=== PATIENT | female | born 1970 | race American Indian/Alaskan Native ===

== ENCOUNTER 2019-09-01 20:39 | Emergency (ER) | payer MEDICARE ==
[2019-09-01] MEDS ORDERED: levETIRAcetam 1000 MG/NS 0.75% 1,000 MG/100 ML BAG IV ONE (21:03)
[2019-09-01] MEDS ORDERED: FAMOTIDINE 20 MG TAB PO ONE (21:03)
[2019-09-01] MEDS ORDERED: SODIUM CHLORIDE 0.9% 500 ML 500 ML IV ONE (21:03)
[2019-09-01] MEDS ORDERED: SUCRALFATE 1 GM/10 ML ORAL LIQD PO ONE (21:03)
--- NOTE | 2019-09-01 21:05 | Emergency Department Report ---
ED General Adult HPI - General Chief complaint: Medical Clearance Stated complaint: CHEST PAIN PUI?: No Time Seen by Provider: 09/01/19 20:50 Source: patient, EMS (Verbal report received from emergency medical services. EMS documentation not available at time of chart dictation ), RN notes reviewed, old records reviewed Mode of arrival: Stretcher Limitations: Other (Patient does not recall what happened) - History of Present Illness Initial comments: During the entire history and physical examination, I am lei maker and escorted by nurse Nivia Mcbride The patient is a 49-year-old female. She is not known to myself previously. Her primary care doctor is Dr. Castro. She has a history of seizures. She believes that she takes Keppra 1000 mg twice daily. Her last seizure was 3 weeks ago. She believes that she takes other prescription medications, but does not know what she takes. She is brought to the hospital by emergency medical services. As per verbal report from EMS, the patient is brought here with a com plaint of chest pain since 12:00 PM. However, the patient cannot tell me initially why she is here. She states that a friend or local delivery driver contacted emergency medical services. She does not know the context of the 911 phone call. EMS verbally surmised that the patient may have had a seizure. The patient herself does not recall if she indeed had a seizure. She does admit to central nonradiating, nonexertional chest pressure, intermittent since 12:00 PM, which does not radiate to the back, arms or neck. She denies vomiting, diaphoresis, and exertional shortness of breath. She denies , fever, cough, coronavirus symptoms, and she denies DVT and pulmonary embolism risk factors. She has bilateral thigh myalgias. She has chronic lower abdominal pain, which she states has been present for 50 years. She is passing gas, denies irritative and obstructive urinary symptoms, and believes that she is constipated. She also endorses a history of fibroids. -: This afternoon Location: chest Radiation: non-radiation Consistency: intermittent Improves with: none Worsens with: none - Related Data Previous Rx's Medication Instructions Recorded Last Taken Type Meclizine [Antivert] 25 mg PO TID PRN #30 tablet 02/21/18 Unknown Rx Aspirin [Aspirin BABY CHEW TAB] 81 mg PO QDAY #30 tab.chew 09/01/19 Unknown Rx Multivitamin with Folic Acid [[facility] 400 mcg PO QDAY #30 tablet 09/01/19 Unknown Rx One Daily Essential Tablet] levETIRAcetam [Keppra TAB] 1,000 mg PO BID #60 tab 09/01/19 Unknown Rx Allergies Allergy/AdvReac Type Severity Reaction Status Date / Time No Known Allergies Allergy Unverified 02/21/18 13:28 ED Review of Systems ROS: Stated complaint: CHEST PAIN Other details as noted in HPI Constitutional: denies: fever Eyes: denies: eye discharge ENT: denies: congestion Respiratory: denies: shortness of breath Cardiovascular: chest pain, palpitations Gastrointestinal: abdominal pain, constipation Genitourinary: denies: dysuria Musculoskeletal: arthralgia, myalgia Skin: denies: lesions Neurological: confusion Psychiatric: denies: homicidal thoughts, suicidal thoughts Hematological/Lymphatic: as per HPI ED Past Medical Hx - Past Medical History Hx Hypertension: Yes Hx Seizures: Yes - Social History Smoking Status: Never Smoker Substance Use Type: None - Medications Home Medications: Home Medications Medication Instructions Recorded Confirmed Last Taken Type Meclizine [Antivert] 25 mg PO TID PRN #30 tablet 02/21/18 Unknown Rx Aspirin [Aspirin BABY CHEW TAB] 81 mg PO QDAY #30 tab.chew 09/01/19 Unknown Rx Multivitamin with Folic Acid [[facility] 400 mcg PO QDAY #30 tablet 09/01/19 Unknown Rx One Daily Essential Tablet] levETIRAcetam [Keppra TAB] 1,000 mg PO BID #60 tab 09/01/19 Unknown Rx ED Physical Exam - General Limitations: Other (Patient is somewhat confused and a poor historian) General appearance: alert, in no apparent distress - Head Head exam: Present: atraumatic, normocephalic - Eye Eye exam: Present: normal appearance, EOMI, other (Visual acuity intact to finger counting, color perception, reading at a close distance). Absent: nystagmus - ENT ENT exam: Present: normal exam, normal orophraynx, mucous membranes moist, normal external ear exam - Neck Neck exam: Present: normal inspection, full ROM. Absent: tenderness, meningismus - Respiratory Respiratory exam: Present: normal lung sounds bilaterally. Absent: respiratory distress - Cardiovascular Cardiovascular Exam: Present: normal rhythm, tachycardia, normal heart sounds. Absent: systolic murmur, diastolic murmur, rubs, gallop - GI/Abdominal GI/Abdominal exam: Present: soft, normal bowel sounds. Absent: distended, tenderness, guarding, rebound, rigid, pulsatile mass - Extremities Exam Extremities exam: Present: normal inspection, full ROM, other (2+ pulses noted in the bilateral upper and lower extremities. There is no palpable cord. negative Homans sign. Muscular compartments are soft. The pelvis is stable.). Absent: pedal edema, calf tenderness - Back Exam Back exam: Present: normal inspection, full ROM. Absent: tenderness, CVA tenderness (R), CVA tenderness (L), paraspinal tenderness, vertebral tenderness - Neurological Exam Neurological exam: Present: alert (Patient is alert to name, location and year. She does not know the name of the graduate assistant athletic trainer), other (No facial droop. Tongue midline. Extraocular movements intact bilaterally. Facial sensation intact to light touch in V1, V2, V3 distribution bilaterally. 5 and a 5 strength in 4 extremities. Sensation intact to light touch in 4 extremities.) - Psychiatric Psychiatric exam: Present: anxious - Skin Skin exam: Present: warm, dry, intact, normal color. Absent: rash ED Course Vital Signs 09/01/19 09/01/19 09/01/19 21:00 21:16 22:15 Temperature 98.1 F Pulse Rate 108 H 112 H 100 H Respiratory 16 24 21 Rate Blood Pressure 132/90 138/92 119/78 Blood Pressure 132/90 [Left] O2 Sat by Pulse 96 94 100 Oximetry 09/01/19 09/01/19 09/02/19 22:45 23:00 00:14 Temperature Pulse Rate 103 H 109 H 101 H Respiratory 25 H 23 24 Rate Blood Pressure 117/78 117/78 117/78 Blood Pressure [Left] O2 Sat by Pulse 100 97 Oximetry 09/02/19 09/02/19 09/02/19 00:30 00:45 01:00 Temperature Pulse Rate 96 H 94 H 94 H Respiratory 22 13 20 Rate Blood Pressure 127/89 119/84 125/87 Blood Pressure [Left] O2 Sat by Pulse 99 98 96 Oximetry 09/02/19 09/02/19 01:15 01:30 Temperature Pulse Rate 94 H 91 H Respiratory 24 22 Rate Blood Pressure 135/97 131/91 Blood Pressure [Left] O2 Sat by Pulse 98 95 Oximetry - Reevaluation(s) Reevaluation #1: 09/01/19 21:17 Differential diagnosis, including but not limited to: Seizure, postictal state, intoxication, electrolyte derangement, thyroid derangement, GERD, gastritis, hiatal hernia, acute coronary syndrome, pneumonia, pulmonary embolism, constipation, fibroids Assessment and plan: 49-year-old female who was brought to the hospital by emergency medical services, uncertain in what context EMS was contacted, patient somewhat confused, thinks that she might of had a seizure but is not sure, and is describing nonspecific chest pressure and discomfort. She also has abdominal pain which she states has been present for decades. The patient is afebrile but tachycardic, and has intermittent episodes of hypoxia, desaturating to 93, 94% on room air. This corrects without significant intervention. There is no abdominal tenderness, rebound or guarding. I have requested the name and phone number of the individual who contacted EMS to obtain collateral information. Screening laboratory studies ordered, EKG, CT scan of the brain ordered, x-ray the chest ordered. Patient will be observed at this time. Appropriate screening laboratory studies will b be sent. We will reassess after initial data points. Assuming normal EKG, normal cardiac enzymes, we would consider the patient low risk for major adverse cardiac event as per heart score. Reevaluation #2: 09/01/19 21:56 Patient is walking with a steady gait. She is found to have evidence of ethanol intoxication. Hypokalemia will be corrected. Troponin negative x1. X-ray of the chest negative Reevaluation #3: 09/01/19 21:59 Patient provided verbal consent for her medical care to be discussed with her daughter. Her daughter indicates that EMS was contacted because the patient was "not acting right." No additional history was offered. There is no history of trauma, seizure or loss of consciousness as per the daughter. Daughter updated on patient's care, and presumptive diagnosis at this time. Reevaluation #4: 09/01/19 23:27 Tachycardia resolved. EKG #2 unchanged from prior. No convulsive events. Resting comfortably and in no acute distress. Repeat troponin pending at this time Reevaluation #5: 09/02/19 01:33 Troponin negative x2. Patient observed in this department for hours without clinical decompensation. Please note that the patient had a significant delay in final disposition secondary to the laboratory taking a prolonged time to receive and result her second troponin. Her tachycardia has resolved. She continues to walk with a steady gait. Her family is going to come by and pick her up ED Medical Decision Making - Lab Data Result diagrams: 09/01/19 21:09 09/01/19 21:09 Vital Signs 09/01/19 21:00 Temperature 98.1 F Pulse Rate 108 H Respiratory 16 Rate Blood Pressure 132/90 Blood Pressure 132/90 [Left] O2 Sat by Pulse 96 Oximetry Lab Results 09/01/19 09/01/19 09/01/19 Range/Units 21:09 21:09 21:09 WBC 4.5 (4.5-11.0) K/mm3 RBC 3.72 (3.65-5.03) M/mm3 Hgb 11.7 (10.1-14.3) gm/dl Hct 35.9 (30.3-42.9) % MCV 97 (79-97) fl MCH 32 (28-32) pg MCHC 33 (30-34) % RDW 16.5 H (13.2-15.2) % Plt Count 243 (140-440) K/mm3 PT 12.6 (12.2-14.9) Sec. INR 0.93 (0.87-1.13) Sodium 145 (137-145) mmol/L Potassium 3.2 L (3.6-5.0) mmol/L Chloride 104.2 (98-107) mmol/L Carbon Dioxide 22 (22-30) mmol/L Anion Gap 22 mmol/L BUN 7 (7-17) mg/dL Creatinine 0.6 L (0.7-1.2) mg/dL Estimated GFR > 60 ml/min BUN/Creatinine Ratio 12 % Glucose 95 (65-100) mg/dL Calcium 8.5 (8.4-10.2) mg/dL Magnesium 2.00 (1.7-2.3) mg/dL Total Bilirubin < 0.20 (0.1-1.2) mg/dL AST 35 (5-40) units/L ALT 11 (7-56) units/L Alkaline Phosphatase 59 (35-129) units/L Total Creatine Kinase 113 (30-135) units/L Troponin T < 0.010 (0.00-0.029) ng/mL Total Protein 7.7 (6.3-8.2) g/dL Albumin 4.6 (3.9-5) g/dL Albumin/Globulin Ratio 1.5 % HCG, Quant (0-4) mIU/mL Salicylates (2.8-20.0) mg/dL Urine Opiates Screen Urine Methadone Screen Acetaminophen (10.0-30.0) ug/mL Ur Barbiturates Screen Ur Phencyclidine Scrn Ur Amphetamines Screen U Benzodiazepines Scrn Urine Cocaine Screen U Marijuana (THC) Screen Plasma/Serum Alcohol (0-0.07) % 09/01/19 09/01/19 09/01/19 Range/Units 21:09 21:09 21:09 WBC (4.5-11.0) K/mm3 RBC (3.65-5.03) M/mm3 Hgb (10.1-14.3) gm/dl Hct (30.3-42.9) % MCV (79-97) fl MCH (28-32) pg MCHC (30-34) % RDW (13.2-15.2) % Plt Count (140-440) K/mm3 PT (12.2-14.9) Sec. INR (0.87-1.13) Sodium (137-145) mmol/L Potassium (3.6-5.0) mmol/L Chloride (98-107) mmol/L Carbon Dioxide (22-30) mmol/L Anion Gap mmol/L BUN (7-17) mg/dL Creatinine (0.7-1.2) mg/dL Estimated GFR ml/min BUN/Creatinine Ratio % Glucose (65-100) mg/dL Calcium (8.4-10.2) mg/dL Magnesium (1.7-2.3) mg/dL Total Bilirubin (0.1-1.2) mg/dL AST (5-40) units/L ALT (7-56) units/L Alkaline Phosphatase (35-129) units/L Total Creatine Kinase (30-135) units/L Troponin T (0.00-0.029) ng/mL Total Protein (6.3-8.2) g/dL Albumin (3.9-5) g/dL Albumin/Globulin Ratio % HCG, Quant < 2 (0-4) mIU/mL Salicylates < 0.3 L (2.8-20.0) mg/dL Urine Opiates Screen Urine Methadone Screen Acetaminophen < 5.0 L (10.0-30.0) ug/mL Ur Barbiturates Screen Ur Phencyclidine Scrn Ur Amphetamines Screen U Benzodiazepines Scrn Urine Cocaine Screen U Marijuana (THC) Screen Plasma/Serum Alcohol (0-0.07) % 09/01/19 09/01/19 Range/Units 21:09 Unknown WBC (4.5-11.0) K/mm3 RBC (3.65-5.03) M/mm3 Hgb (10.1-14.3) gm/dl Hct (30.3-42.9) % MCV (79-97) fl MCH (28-32) pg MCHC (30-34) % RDW (13.2-15.2) % Plt Count (140-440) K/mm3 PT (12.2-14.9) Sec. INR (0.87-1.13) Sodium (137-145) mmol/L Potassium (3.6-5.0) mmol/L Chloride (98-107) mmol/L Carbon Dioxide (22-30) mmol/L Anion Gap mmol/L BUN (7-17) mg/dL Creatinine (0.7-1.2) mg/dL Estimated GFR ml/min BUN/Creatinine Ratio % Glucose (65-100) mg/dL Calcium (8.4-10.2) mg/dL Magnesium (1.7-2.3) mg/dL Total Bilirubin (0.1-1.2) mg/dL AST (5-40) units/L ALT (7-56) units/L Alkaline Phosphatase (35-129) units/L Total Creatine Kinase (30-135) units/L Troponin T (0.00-0.029) ng/mL Total Protein (6.3-8.2) g/dL Albumin (3.9-5) g/dL Albumin/Globulin Ratio % HCG, Quant (0-4) mIU/mL Salicylates (2.8-20.0) mg/dL Urine Opiates Screen Presumptive negative Urine Methadone Screen Presumptive negative Acetaminophen (10.0-30.0) ug/mL Ur Barbiturates Screen Presumptive negative Ur Phencyclidine Scrn Presumptive negative Ur Amphetamines Screen Presumptive negative U Benzodiazepines Scrn Presumptive negative Urine Cocaine Screen Presumptive negative U Marijuana (THC) Screen Presumptive negative Plasma/Serum Alcohol 0.38 H (0-0.07) % - EKG Data -: EKG Interpreted by Me EKG shows normal: sinus rhythm Rate: tachycardia - EKG Data Interpretation: no acute changes, unchanged when compared t 09/01/19 21:55 Sinus, tachycardia, 100 bpm, normal axis, QTC 483 ms, Q waves noted in the inferior leads, left ventricular hypertrophy. Abnormal EKG. Not a STEMI. Unchanged from prior EKG from February 2018 Critical care attestation.: If time is entered above; I have spent that time in minutes in the direct care of this critically ill patient, excluding procedure time. ED Disposition Clinical Impression: History of chest pain, History of seizure Alcohol intoxication Qualifiers: Complication of substance-induced condition: uncomplicated Qualified Code(s): F10.920 - Alcohol use, unspecified with intoxication, uncomplicated Disposition: DC- TO HOME OR SELFCARE Is pt being admited?: No Does the pt Need Aspirin: No Condition: Stable Additional Instructions: Please continue current outpatient medications. Recommend that patient minimize or discontinue alcohol consumption. Do not drive or operate motor vehicles for the next 6 months, or until cleared to do so by her primary care doctor or neurologist. Recommend that patient take baby aspirin on a daily basis, in addition to a multivitamin with folic acid. Please follow-up with your primary care doctor or neurologist within the next 7 to 10 days. Patient was found to have nonemergent incidental findings today in the emergency room, which need to be followed up by a primary care doctor or neurologist. Please have your primary care doctor or neurologist contact the medical records department to obtain copies of your laboratory studies, and radiology studies, to follow-up on nonemergent incidental findings. Please return to the emergency room right away with new pain, worsening pain, migration of pain, projectile vomiting, change in mental status, confusion, inability to tolerate liquid feeds. Also recommend follow-up with an outpatient laser operator within the next 3 to 5 days for complaint of chest pain. For the patient's convenience, local primary care, cardiology, and neurology specialists have been listed for her convenience. Prescriptions: Aspirin [Aspirin BABY CHEW TAB] 81 mg PO QDAY #30 tab.chew Multivitamin with Folic Acid [[facility] One Daily Essential Tablet] 400 mcg PO QDAY #30 tablet levETIRAcetam [Keppra TAB] 1,000 mg PO BID #60 tab Referrals: MYLES GARBER MD [Staff Physician] - 3-5 Days PAULETTE LOYA MD [Referring] - 3-5 Days [facility] [Provider Group] - 3-5 Days
[2019-09-01 21:32] LABS: Hematocrit 35.9 % (30.3-42.9); Hemoglobin 11.7 gm/dl (10.1-14.3); Mean Corpuscular HGB Conc 33 % (30-34); Mean Corpuscular Volume 97 fl (79-97); Platelet Count 243 K/mm3 (140-440); Red Blood Count 3.72 M/mm3 (3.65-5.03); Red Cell Distribution Width 16.5 % (13.2-15.2)
--- NOTE | 2019-09-01 21:37 | XRay Report ---
CHEST 1 VIEW INDICATION / CLINICAL INFORMATION: MAIN: cp; Pt came in via [facility] due to complain of chest pain. COMPARISON: None available. FINDINGS: SUPPORT DEVICES: None. HEART / MEDIASTINUM: No significant abnormality. LUNGS / PLEURA: No significant pulmonary or pleural abnormality. No pneumothorax. ADDITIONAL FINDINGS: No significant additional findings. IMPRESSION: 1. No acute findings. Signer Name: Delvis Zhang MD Signed: 09/01/2019 9:33 PM Workstation Name: [id number]
[2019-09-01 21:46] LABS: INR 0.93 (0.87-1.13)
[2019-09-01 21:49] LABS: Alanine Aminotransferase 11 units/L (7-56); Albumin 4.6 g/dL (3.9-5); BUN/Creatinine Ratio 12; Blood Urea Nitrogen 7 mg/dL (7-17); Calcium 8.5 mg/dL (8.4-10.2); Hemolysis Index 6
[2019-09-01] MEDS ORDERED: POTASSIUM CHLORIDE ER 20 MEQ TAB PO ONE (21:52)
[2019-09-01 21:55] LABS: Amphetamine Screen,Urine PRESUMPTIVE NEGATIVE; Benzodiazepines Screen,Urine PRESUMPTIVE NEGATIVE; Cannabinoid Screen,Urine PRESUMPTIVE NEGATIVE; Cocaine Screen,Urine PRESUMPTIVE NEGATIVE; Methadone Screen,Urine PRESUMPTIVE NEGATIVE; Opiate Screen,Urine PRESUMPTIVE NEGATIVE
[2019-09-01 21:58] LABS: Bacteria,Urine 1+ /HPF (Negative); Bilirubin,Urine NEG (Negative); Blood,Urine NEG (Negative); Color,Urine Yellow (Yellow); Mucus,Urine 1+ /HPF; RBC,Urine < 1.0 /HPF (0.0-6.0); WBC,Urine < 1.0 /HPF (0.0-6.0)
--- NOTE | 2019-09-01 22:01 | Cat Scan Report ---
CT HEAD WITHOUT CONTRAST INDICATION / CLINICAL INFORMATION: confusion hx of seizure. TECHNIQUE: All CT scans at this location are performed using CT dose reduction for ALARA by means of automated e xposure control. COMPARISON: Head CT 02/21/2018 FINDINGS: HEMORRHAGE: No evidence of intracranial hemorrhage or extra-axial fluid collection. EXTRA-AXIAL SPACES: Cortical sulci, sylvian fissures and basilar cisterns have an unremarkable appear ance. VENTRICULAR SYSTEM: The ventricular system is of normal size and configuration. CEREBRAL PARENCHYMA: A region of decreased attenuation is seen in the caudate nucleus and adjacent co moira radiata on the right. This reflects the sequelae of remote small deep infarction. This is unchan ged in comparison to previous study. No additional areas of abnormal brain parenchymal attenuation ar e identified. There is no indication of recent infarction. MIDLINE SHIFT OR HERNIATION: There is no mass effect. CEREBELLUM / BRAINSTEM: Brainstem and cerebellum have an unremarkable appearance. INTRACRANIAL VESSELS:No abnormalities are identified on this noncontrast head CT. ORBITS: visualized portions of the orbits have an unremarkable appearance. SOFT TISSUES of HEAD: No significant abnormality. CALVARIUM: Evaluation of bone windows reveals no abnormalities. PARANASAL SINUSES / MASTOID AIR CELLS: Paranasal sinuses are free from inflammatory mucosal disease. Mastoid air cells are normally pneumatized. ADDITIONAL FINDINGS: None. IMPRESSION: 1. 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 This is a stable finding. 2. No acute intracranial abnormality. No interval change. Signer Name: Joby Torres MD Signed: 09/01/2019 9:57 PM Workstation Name: [id number]
[2019-09-02 01:33] VITALS: BP 131/91
== END 2019-09-02 03:00 | disposition home or self-care (01) ==
LOC: ED 20:39
DX: F10.920 Alcohol use, unspecified with intoxication, uncomplicated (principal); R07.9 Chest pain, unspecified; R56.9 Unspecified convulsions; I10 Essential (primary) hypertension; Z79.899 Other long term (current) drug therapy; Z86.69 Personal history of other diseases of the nervous system and sense organs
CPT/HCPCS: 36415; 70450; 71045; 80053; 80307; 81001; 82550; 83735; 84443; 84484; 84702; 85027; 85379; 85610; 93005; 96374; 99285; J1953; J7040; 80320; 96365; G0480

== ENCOUNTER 2020-12-20 13:53 | Emergency (ER) | payer MEDICARE ==
[2020-12-20] MEDS ORDERED: levETIRAcetam 500 MG TAB PO ONE (13:59)
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
[2020-12-20 15:18] VITALS: BP 125/89
== END 2020-12-20 15:09 | disposition home or self-care (01) ==
LOC: ED 13:53
DX: S09.90XA Unspecified injury of head, initial encounter (principal); F10.120 Alcohol abuse with intoxication, uncomplicated; G40.909 Epilepsy, unspecified, not intractable, without status epilepticus; I10 Essential (primary) hypertension; X58.XXXA Exposure to other specified factors, initial encounter; Y93.89 Activity, other specified; Y92.89 Other specified places as the place of occurrence of the external cause; Y99.8 Other external cause status
CPT/HCPCS: 70450; 99283